=== PATIENT | female | born 1955 | race Caucasian/White ===

== ENCOUNTER 2020-06-19 08:35 | Outpatient (CLI) | payer MEDICARE, OTHER, SELFPAY ==
--- NOTE | 2020-06-24 12:21 | WPDHOLTEREM ---
Holter/Event Monitor Holter/Event Monitor Date of procedure: 06/19/20 Procedure Type: 24 hour holter monitor Indications: Tachycardia, Arrhythmia Conclusion: 1. 24 hour holter monitor on 06/19/20. 2. Predomiinant rhythm is sinus rhythm. HR range 59-136 bpm; average HR 85 bpm. 3. There are 9 premature supraventricular complexes. There is one atrial tachycardia at 133 bpm lasting 6 beats. 4. There are 78 premature ventricular complexes. No ventricular tachycardia. 5. No sinoatrial or atrioventricular blocks. No significant pauses greater than 2 seconds. 6. Patient reports symptoms of flutter which demonstrate sinus rhythm, HR range 84-86 bpm.
== END 2020-06-19 08:36 | disposition home or self-care (01) ==
LOC: ANHCARD 08:36
PROVIDERS: PCP Family Medicine; Visit Provider Family Medicine
DX: R00.0 Tachycardia, unspecified (principal)
CPT/HCPCS: 93225; 93226

== ENCOUNTER 2020-09-03 11:58 | Outpatient (CLI) | payer MEDICARE, OTHER, SELFPAY ==
--- NOTE | ~2020-09-03 | MM_ITS ---
EXAMINATION: MM screening marcio BI w lara HISTORY: Screening mammogram TECHNIQUE: Craniocaudal and mediolateral oblique 3-D tomosynthesis images were obtained and synthetic 2-D images were generated. CAD analysis was submitted and interpreted. COMPARISON: 09/12/2019, 08/29/2018, 08/23/2017 bilateral digital screening mammogram examinations BREAST PARENCHYMAL COMPOSITION: There are scattered areas of fibroglandular density. FINDINGS: Scattered benign calcifications are noted bilaterally. There is no evidence of suspicious m ass, calcification, or architectural distortion to suggest malignancy in either breast. There has bee n no suspicious interval change. IMPRESSION: 1. No mammographic evidence of malignancy. 2. Recommend routine screening mammography in one year. BI-RADS Category 2: Benign finding(s). Reviewed, dictated and finalized at location A.
== END 2020-09-03 11:59 | disposition home or self-care (01) ==
LOC: ANHIMG 12:01
PROVIDERS: PCP Family Medicine; Visit Provider Obstetrics & Gynecology
DX: Z12.31 Encounter for screening mammogram for malignant neoplasm of breast (principal)
CPT/HCPCS: 77063; 77067

== ENCOUNTER → 2021-06-18 10:53 | Outpatient (CLI) | payer MEDICARE, OTHER, SELFPAY ==
--- NOTE | ~2021-06-18 | XR_ITS ---
EXAMINATION: XR hand BI arthritis min 3V DATE: 06/18/2021 11:28 INDICATION: Bilateral hand pain. TECHNIQUE: 4 views of right hand and 4 views of left hand on 7 radiographs were obtained. COMPARISON: None. FINDINGS: RIGHT HAND: There is radial angulation of second distal phalanx with respect to the middle phalanx. N o fracture. There is severe osteoarthritis of triscaphe joint and mild osteoarthritis of first carpom etacarpal joint and most of the interphalangeal joints. There is severe osteoarthritis of second dist al interphalangeal joint and moderate osteoarthritis of third and fifth distal interphalangeal joints . LEFT HAND: There is radial subluxation and angulation of second distal phalanx with respect to the mi ddle phalanx. No fracture. There is moderate osteoarthritis of triscaphe joint and mild osteoarthriti s of first carpometacarpal joint and most of the interphalangeal joints. There is severe osteoarthrit is of second distal interphalangeal joint and moderate osteoarthritis of third and fifth distal inter phalangeal joints. IMPRESSION: 1. Polyarticular osteoarthritis. Reviewed, dictated and finalized at location A.
== END ==
PROVIDERS: PCP Family Medicine; Visit Provider Family Medicine
DX: S63.201A Unspecified subluxation of left index finger, initial encounter (principal); M19.042 Primary osteoarthritis, left hand; M19.041 Primary osteoarthritis, right hand; M18.0 Bilateral primary osteoarthritis of first carpometacarpal joints
CPT/HCPCS: 73130

== ENCOUNTER 2023-01-12 09:50 | Day surgery (SDC) | payer MEDICARE, SELFPAY ==
[2022-11-29 11:44] VITALS: BMI 32.8
[2023-01-03 12:41] VITALS: BMI 32.4
--- NOTE | 2023-01-11 15:09 | P.PNAN_ITS ---
Anes - Initial Pre Proc Eval Procedure: Operation Date: 01/12/23 12:00 Proposed Procedures p Colonoscopy - Jake Lake MD Date/Time: 01/11/23 15:09 Surgeon: Jake Lake MD Pre Op Diagnosis: History of Colon Polyps Patient Data Age: 67 Gender: F Height: 1.6 m Weight: 83 kg Allergies Allergy/AdvReac Type Severity Reaction Status Date / Time Penicillins Allergy Unknown Rash Verified 01/03/23 12:52 Home Medications Medication Instructions Recorded Confirmed Type raloxifene 60 mg tablet (Evista) 60 mg PO DAILY 10/30/19 01/03/23 History levothyroxine 112 mcg tablet 112 mcg PO DAILY #90 tabs 04/22/22 01/03/23 Rx (Synthroid) rosuvastatin 20 mg tablet (Crestor) 20 mg PO DAILY #90 tabs 07/21/22 01/03/23 Rx Patient hx anesthesia problems: none Family hx anesthesia problems: none Results Review: All pre-operative results and documents have been reviewed as part of the pre- operative evaluation. [facility] Past Medical History Medical History Anxiety Bilateral hand pain BMI 32.0-32.9,adult Hypothyroidism Mixed hyperlipidemia Need for vaccination Tachycardia Vitamin D deficiency, unspecified Family History Family History Mother Hypertension Family history of diabetes mellitus in first degree relative Family history of malignant neoplasm of thyroid Grandparent Cerebrovascular accident Other Diabetes mellitus Family history of coronary artery disease Family history of irritable bowel syndrome Social History Social History Smoking status: Never smoker Alcohol intake: current Alcohol use details: a few times per week Substance use: never Substance use type: does not use Living arrangements: with family Spiritual care concerns: No Anes - Eval Final PreProcedure Day of Procedure 01/11/23 15:09 Patient weight: obese Heart: regular rate and rhythm Lungs: clear to auscultation Airway: Mallampati scale class II Neurological: alert and oriented Last oral intake: >/= 8 hours ASA classification: II Emergent: no Anesthetic plan: proceed Anesthesia type and monitoring: general GIVS and standard monitoring Results Review: All pre-operative results and documents have been reviewed as part of the pre- operative evaluation. Informed Consent: The patient's anesthetic plan and its attendant risks and benefits were discussed with the patient/family/POA. Questions were solicited and answers provided to the satisfaction of the patient/family/POA.
--- NOTE | 2023-01-11 17:10 | PM.HPGS ---
History of Present Illness History of Present Illness Consent: Risks, benefits, and alternatives have been discussed and questions answered. Patient agrees to proceed with procedure. Chief complaint: History of Colon Polyps Narrative: Stephanie Segundo is a 67 year old female referred for colon cancer screening. Her last colonoscopy was 5 years ago. She has have a history of having polyps. Review of Systems Review of Systems: All systems reviewed & are unremarkable except as noted in HPI and below PMFSH Past Medical History Medical History Anxiety Bilateral hand pain BMI 32.0-32.9,adult Hypothyroidism Mixed hyperlipidemia Need for vaccination Tachycardia Vitamin D deficiency, unspecified Family History Family History Mother Hypertension Family history of diabetes mellitus in first degree relative Family history of malignant neoplasm of thyroid Grandparent Cerebrovascular accident Other Diabetes mellitus Family history of coronary artery disease Family history of irritable bowel syndrome Social History Social History Smoking status: Never smoker Alcohol intake: current Alcohol use details: a few times per week Substance use: never Substance use type: does not use Living arrangements: with family Spiritual care concerns: No Meds Home Medications and Allergies Home Medications Medication Instructions Recorded Confirmed Type raloxifene 60 mg tablet (Evista) 60 mg PO DAILY 10/30/19 01/03/23 History levothyroxine 112 mcg tablet 112 mcg PO DAILY #90 tabs 04/22/22 01/03/23 Rx (Synthroid) rosuvastatin 20 mg tablet (Crestor) 20 mg PO DAILY #90 tabs 07/21/22 01/03/23 Rx Allergies Allergy/AdvReac Type Severity Reaction Status Date / Time Penicillins Allergy Unknown Rash Verified 01/03/23 12:52 Exam Const: General: alert Orientation/consciousness: patient oriented x3 Resp: Auscultation: clear to auscultation bilaterally Cardio: Rhythm: regular rhythm GI: GI Palp: Yes Soft to palpation and No Tenderness to palpation present (GI) Neuro: General: patient oriented x3 Assessment and Plan Assessment and plan (1) Colon cancer screening: Code(s): Z12.11 - Encounter for screening for malignant neoplasm of colon Status: Acute Assessment and Plan: Colonoscopy with possible biopsy or polypectomy or cautery or injection of substances.
[2023-01-12 10:52] VITALS: BP 123/77; PULSE 89; RESP 16; TEMP 36.9; O2SAT 98; BMI 33.5
[2023-01-12] MEDS: LACTATED RINGERS 1,000 ML 150 ML IV CONT (11:02)
[2023-01-12 12:32] VITALS: BP 159/75; PULSE 72; RESP 14; O2SAT 94
[2023-01-12 12:42] VITALS: BP 131/70; PULSE 70; RESP 16; O2SAT 98
--- NOTE | 2023-01-12 12:50 | SUR.PHASEII ---
PT AWAKE AND ALERT. EATING AND DRINKING. DENIES PAIN.
[2023-01-12 12:52] VITALS: BP 128/83; PULSE 60; RESP 16; O2SAT 100
--- NOTE | 2023-01-12 14:31 | WPDANESPN ---
Anes - Prog Note Post-Op Date/Time: 01/12/23 14:31 Cardiovascular status: normal Respiratory status: normal Airway patency: baseline Mental status: baseline Post-Op hydration status: normal Vital Signs: Last Vital Signs Temp 36.9 C 01/12/23 10:52 Pulse 60 01/12/23 12:52 Resp 16 01/12/23 12:52 BP 128/83 01/12/23 12:52 Pulse Ox 100 01/12/23 12:52 O2 Del Method Room Air 01/12/23 12:52 Pain Score (VAS): 0 I/O: Intake & Output 01/11/23 01/12/23 01/12/23 23:59 07:59 15:59 Intake Total 1100 Balance 1100 Post-procedural complaints: none Patient Feedback: Patient satisfied with anesthetic care. Other Findings: Patient vital signs back to baseline. Patient denies nausea and vomiting. Patient's pain under control. Patient OK for discharge.
== END 2023-01-12 13:10 | disposition home or self-care (01) ==
PROVIDERS: PCP Family Medicine; Visit Provider Internal Medicine Gastroenterology
PROC: 0DJD8ZZ Inspection of Lower Intestinal Tract, Via Natural or Artificial Opening Endoscopic (ICD-10-PCS; CPT 45378; principal; 2023-01-12 12:00)
DX: Z12.11 Encounter for screening for malignant neoplasm of colon (principal)
CPT/HCPCS: 45378

== ENCOUNTER 2023-02-28 13:06 | Outpatient (CLI) | payer MEDICARE, SELFPAY ==
[2023-02-28 14:02] LABS: Basophils Absolute Auto 0.1 K/mm3 (0.0-0.1); Basophils Percent Auto 0.8 % (0.2-1.2); Eosinophils Absolute Auto 0.4 K/mm3 (0-0.3); Eosinophils Percent Auto 3.6 % (0-4.4); Hematocrit 43.5 % (37.0-47.0); Hemoglobin 14.1 g/dL (12.0-15.0); Immature Granulocyte Absolute 0.03 K/mm3 (0.00-0.031); Immature Granulocyte Percent A 0.3 % (0-0.5); Lymphocytes Percent Auto 32.8 % (18.3-44.2); Mean Corpuscular HGB Conc 32.4 g/dl (32-36); Mean Corpuscular Hemoglobin 31.4 pg (26-34); Mean Corpuscular Volume 96.9 fl (80-100); Mean Platelet Volume 10.4 fl (7.4-10.4); Monocytes Absolute Auto 0.9 K/mm3 (0.1-0.6); Monocytes Percent Auto 8.7 % (2.6-8.5); Neutrophils Absolute Auto 5.3 K/mm3 (1.3-6.7); Neutrophils Percent Auto 53.8 % (45.5-73.1); Platelet Count Result 336 k/mm3 (150-375); Red Blood Count 4.49 M/mm3 (4.2-5.4); Red Cell Distribution Width 13.2 % (11.5-14.5); White Blood Count 9.8 K/mm3 (4.5-10.0)
[2023-02-28 15:01] LABS: Erythrocyte Sedimentation Rate 15 mm/hr (0-20)
[2023-02-28 15:03] LABS: Alanine Aminotransferase 30 U/L (6-35); Albumin Level 4.5 g/dL (3.5-5.1); Alkaline Phosphatase 81 U/L (38-126); Anion Gap 10 mmol/L (8-16); Aspartate Amino Transferase 29 U/L (14-36); Bilirubin,Total 1.4 mg/dL (0.2-1.3); Blood Urea Nitrogen 14 mg/dL (7-17); CRP < 0.5 mg/dL (<1.0); Calcium 9.1 mg/dL (8.4-10.2); Carbon Dioxide 27 mmol/L (22-30); Chloride 106 mmol/L (98-107); Estimated Glomerular Filt Rate > 60; Glucose 109 mg/dL (65-110); Potassium 4.1 mmol/L (3.4-5.0); Sodium 143 mmol/L (137-145)
[2023-03-03 14:55] LABS: BCR/abl Prior Result Not Given
[2023-03-03 15:42] LABS: BCR/abl P190 Not Detected; BCR/abl P210 Not Detected
[2023-03-03 15:43] LABS: BCR/abl P190 Chg YES; BCR/abl P210 Chg YES
== END 2023-02-28 13:07 | disposition home or self-care (01) ==
PROVIDERS: PCP Family Medicine; Visit Provider Internal Medicine Hematology & Oncology
DX: D72.829 Elevated white blood cell count, unspecified (principal)
CPT/HCPCS: 36415; 80053; 81206; 81207; 85025; 85652; 86140

== ENCOUNTER 2023-09-15 08:53 | Outpatient (CLI) | payer MEDICARE, SELFPAY ==
[2023-09-15 09:07] LABS: Basophils Absolute Auto 0.1 K/mm3 (0.0-0.1); Basophils Percent Auto 0.6 % (0.2-1.2); Eosinophils Absolute Auto 0.4 K/mm3 (0-0.3); Eosinophils Percent Auto 2.5 % (0-4.4); Hematocrit 43.8 % (37.0-47.0); Hemoglobin 14.5 g/dL (12.0-15.0); Immature Granulocyte Absolute 0.06 K/mm3 (0.00-0.031); Immature Granulocyte Percent A 0.4 % (0-0.5); Lymphocytes Absolute Auto 3.04 K/mm3 (0.9-3.2); Lymphocytes Percent Auto 21.1 % (18.3-44.2); Mean Corpuscular HGB Conc 33.1 g/dl (32-36); Mean Corpuscular Hemoglobin 31.8 pg (26-34); Mean Corpuscular Volume 96.1 fl (80-100); Mean Platelet Volume 10.2 fl (7.4-10.4); Monocytes Absolute Auto 1.1 K/mm3 (0.1-0.6); Monocytes Percent Auto 7.9 % (2.6-8.5); Neutrophils Absolute Auto 9.7 K/mm3 (1.3-6.7); Neutrophils Percent Auto 67.5 % (45.5-73.1); Platelet Count Result 342 k/mm3 (150-375); Red Blood Count 4.56 M/mm3 (4.2-5.4); Red Cell Distribution Width 13.1 % (11.5-14.5); White Blood Count 14.4 K/mm3 (4.5-10.0)
== END 2023-09-15 08:54 | disposition home or self-care (01) ==
PROVIDERS: PCP Family Medicine; Visit Provider Internal Medicine Hematology & Oncology
DX: D72.829 Elevated white blood cell count, unspecified (principal)
CPT/HCPCS: 36415; 85025; 88184

== ENCOUNTER 2023-09-19 10:14 | Outpatient (CLI) | payer MEDICARE, SELFPAY ==
[2023-09-19 10:33] LABS: Basophils Absolute Auto 0.1 K/mm3 (0.0-0.1); Basophils Percent Auto 0.5 % (0.2-1.2); Eosinophils Absolute Auto 0.3 K/mm3 (0-0.3); Eosinophils Percent Auto 2.3 % (0-4.4); Hematocrit 43.4 % (37.0-47.0); Immature Granulocyte Absolute 0.06 K/mm3 (0.00-0.031); Immature Granulocyte Percent A 0.4 % (0-0.5); Lymphocytes Absolute Auto 2.94 K/mm3 (0.9-3.2); Mean Corpuscular HGB Conc 32.3 g/dl (32-36); Mean Corpuscular Hemoglobin 31.5 pg (26-34); Mean Corpuscular Volume 97.5 fl (80-100); Mean Platelet Volume 10.1 fl (7.4-10.4); Monocytes Percent Auto 7.4 % (2.6-8.5); Neutrophils Percent Auto 67.4 % (45.5-73.1); Platelet Count Result 334 k/mm3 (150-375); Red Blood Count 4.45 M/mm3 (4.2-5.4); Red Cell Distribution Width 13.2 % (11.5-14.5); White Blood Count 13.3 K/mm3 (4.5-10.0)
== END 2023-09-19 10:15 | disposition home or self-care (01) ==
PROVIDERS: PCP Family Medicine; Visit Provider Internal Medicine Hematology & Oncology
DX: D72.829 Elevated white blood cell count, unspecified (principal)
CPT/HCPCS: 36415; 85025

== ENCOUNTER 2024-04-03 10:27 | Outpatient (CLI) | payer MEDICARE, SELFPAY ==
[2024-04-03 10:43] LABS: Basophils Absolute Auto 0.1 K/mm3 (0.0-0.1); Basophils Percent Auto 0.8 % (0.2-1.2); Eosinophils Absolute Auto 0.3 K/mm3 (0-0.3); Eosinophils Percent Auto 2.9 % (0-4.4); Hematocrit 44.1 % (37.0-47.0); Hemoglobin 14.2 g/dL (12.0-15.0); Immature Granulocyte Absolute 0.05 K/mm3 (0.00-0.031); Immature Granulocyte Percent A 0.5 % (0-0.5); Lymphocytes Absolute Auto 2.95 K/mm3 (0.9-3.2); Lymphocytes Percent Auto 28.1 % (18.3-44.2); Mean Corpuscular HGB Conc 32.2 g/dl (32-36); Mean Corpuscular Hemoglobin 31.8 pg (26-34); Mean Corpuscular Volume 98.9 fl (80-100); Mean Platelet Volume 10.3 fl (7.4-10.4); Monocytes Absolute Auto 0.8 K/mm3 (0.1-0.6); Monocytes Percent Auto 7.8 % (2.6-8.5); Neutrophils Absolute Auto 6.3 K/mm3 (1.3-6.7); Neutrophils Percent Auto 59.9 % (45.5-73.1); Platelet Count Result 329 k/mm3 (150-375); Red Blood Count 4.46 M/mm3 (4.2-5.4); Red Cell Distribution Width 13.2 % (11.5-14.5); White Blood Count 10.5 K/mm3 (4.5-10.0)
[2024-04-03 11:46] LABS: Anion Gap 9 mmol/L (4-12); Blood Urea Nitrogen 15 mg/dL (7-17); Calcium 8.9 mg/dL (8.4-10.2); Carbon Dioxide 24 mmol/L (22-30); Chloride 108 mmol/L (98-107); Estimated Glomerular Filt Rate > 60; Glucose 101 mg/dL (65-110); Sodium 141 mmol/L (137-145)
== END 2024-04-03 10:28 | disposition home or self-care (01) ==
LOC: ANHLAB 10:29
PROVIDERS: PCP Family Medicine; Visit Provider Internal Medicine Hematology & Oncology
DX: D72.829 Elevated white blood cell count, unspecified (principal)
CPT/HCPCS: 36415; 80048; 85025

== ENCOUNTER 2025-04-24 10:20 | Outpatient (CLI) | payer MEDICARE, SELFPAY ==
--- NOTE | ~2025-04-24 | MM_ITS ---
EXAMINATION: MM screening marcio BI w lara HISTORY: Screening TECHNIQUE: Craniocaudal and mediolateral oblique 3-D tomosynthesis images were obtained and synthetic 2-D images were generated. CAD analysis was submitted and interpreted. COMPARISON: Comparison to multiple prior studies sequentially, with oldest reviewed study dated 08/03. BREAST PARENCHYMAL COMPOSITION: Not dense: There are scattered areas of fibroglandular density. FINDINGS: There is no evidence of suspicious mass, calcification, or architectural distortion to sugg est malignancy in either breast. There has been no suspicious interval change. IMPRESSION: 1. No mammographic evidence of malignancy. 2. Recommend routine screening mammography in one year. BI-RADS Category 1: Negative Reviewed, dictated and finalized at location B.
--- OUTSIDE RECORDS SUMMARY | 2025-04-24 11:58 | XMS_ITS | Encounter Summary ---
Author Organization [facility] cicayda Address [address] [place] [address] Care Team Providers Care Floor Steward/Stewardess Name Role Phone Arvind Holden MD Primary Care Provider [phone] Encounter Details Date Type Department Care Team (Late st Contact Info) Description 10/04/2023 Telephone [facility] Oncology and Hematology - [place] [address] [place] [address] Domenico Rodriguez MD [address] [place] [address] Social History Tobacco Use Types Packs/Day Years Used Date Smoking Tobacco: Former Cigarettes Smokeless Tobacco: Never Alcohol Use Standard Drinks/Week Comments Yes 1 (1 standard drink = 0.6 oz pur e alcohol) Comments Unknown Sex and Gender Information Value Date Recorded Sex Assigned at Not on file Legal Sex Female 8:14 AM CDT Gender Identity Not on file Sexual Orientation Not on file documented as of this encounter Plan of Treatment Not on file documented as of this encounter Visit Diagnoses Not on filedocumented in this encounter Care Teams Floor Steward/Stewardess Relationship Specialty Start Date End Date Arvind Holden MD [address] [place] [address] PCP - General Family Practice 02/08/23 documented as of this encounter
--- OUTSIDE RECORDS SUMMARY | 2025-04-24 11:58 | XMS_ITS | Clinical Summary ---
Author Organization [facility] Address [address] [address] Care Team Providers Care Commercial Fisher Name Role Phone Arvind Holden MD Primary Care Provider [phone] Allergies Active Allergy Reactions Criticality Noted Date Comments Penicillins Swelling Low 02/22/2023 Medications levothyroxine 112 mcg tablet Take 112 mcg by mouth daily in the morning. Active rosuvastatin (CRESTOR) 20 mg tablet Take 20 mg by mouth daily. Active raloxifene (EVISTA) 60 mg tablet Take 60 mg by mouth daily. Active escitalopram oxalate (LEXAPRO) 10 mg tablet Take 10 mg by mouth daily. 07/27/2023 Active Active Problems No known active problems Encounters Date Type Department Care Team Description 04/04/2025 External Device Data [facility] ABSTRACTION Provider, Abstract 04/03/2025 External Device Data [facility]STRACTION Provider, Abstract 04/02/2025 External Device Data [facility]STRACTION Provider, Abstract 01/30/2025 External Device Data [facility] ABSTRACTION Provider, Abstract from Last 3 Months Family History Medical History Relation Name Comments Heart Disease Brother No Known Problems Daughter No Known Problems Father Diabetes Mother Heart Disease Mother No Known Problems Son Relation Name Status Comments Brother Alive Daughter Alive Father Mother Sister Son Alive Social History Tobacco Use Types Packs/Day Years Used Date Smoking Tobacco: Former Cigarettes 0.3 2 1 - 1991 Smokeless Tobacco: Never Tobacco Cessation:Counseling Given: Not Answered Alcohol Use Standard Drinks/Week Comments Yes 1 (1 standard drink = 0.6 oz pur e alcohol) Comments Unknown Sex and Gender Information Value Date Recorded Sex Assigned at Not on file Legal Sex Female 8:14 AM CDT Gender Identity Not on file Sexual Orientation Not on file Last Filed Vital Signs Vital Sign Reading Time Taken Comments Blood Pressure 127/81 04/04/2024 10:46 AM CDT Pulse 71 04/04/2024 10:46 AM CDT Temperature 35.8 C (96.4 F) 04/04/2024 10:46 AM CDT Respiratory Rate 14 04/04/2024 10:46 AM CDT Oxygen Saturation 96% 04/04/2024 10:46 AM CDT Inhaled Oxygen Concentration - - Weight 89 kg (196 lb 3.2 oz) 04/04/2024 10:46 AM CDT Height 160 cm (5' 3) 02/22/2023 10:19 AM CDT Body Mass Index 34.76 02/22/2023 10:19 AM CDT Plan of Treatment Health Maintenance Due Date Last Done Comments DTAP/TDAP/TD VACCINES (1 - Tdap) 1973 BREAST CANCER SCREENING 1994 COLORECTAL SCREENING 1999 Colorectal Cancer Screening 1999 FIT-DNA Q 3 years 1999 FIT/FOBT Q 1 year 1999 Flex Sig/CT Colonography Q 5 years 1999 PNEUMOCOCCAL VACCINE 50+ YEA RS (1 of 1 - PCV) 2004 ZOSTER VACCINE (1 of 2) 2004 OSTEOPOROSIS SCREENING 2019 INFLUENZA VACCINE (#1) 2024 08/28/2018, 2016 RSV VACCINE (60+ or ) (1 - 1-dose 75+ series) 2029 [facility] [id number] Care Teams Commercial Fisher Relationship Specialty Start Date End Date Arvind Holden MD [address] [place] [address] PCP - General Family Practice 02/08/23
--- OUTSIDE RECORDS SUMMARY | 2025-04-24 11:58 | XMS_ITS | Clinical Summary ---
Author Organization [facility] [address] Address [address] [place] [address] Care Team Providers Care Firmware Software Verification Engineer Name Role Phone Arvind Holden MD Primary Care Provider [phone] Allergies Active Allergy Reactions Criticality Noted Date Comments Penicillins Swelling Medium 01/03/2018 Medications rosuvastatin (CRESTOR) 20 mg tablet Take 1 tablet (20 mg total) by mouth daily Active raloxifene (EVISTA) 60 mg tablet Take 1 tablet (60 mg total) by mouth daily Active ascorbic acid (VITAMIN C) 1,000 mg tablet Take 1 tablet (1,000 mg total) by mouth daily Active cholecalciferol (VITAMIN D-3) 5,000 unit capsule Take 1 capsule (5,000 Units total) by mouth daily Active cetirizine (ZyrTEC) 10 mg tablet Take 1 tablet (10 mg total) by mouth daily Active levothyroxine (SYNTHROID) 112 mcg tablet Take 1 tablet (112 mcg total) by mouth traffic operations manager before breakfast Active multivitamin capsule Take 1 capsule by mouth daily Active calcium carbonate-vitam in D3 (CALTRATE 600 + D) 1500 mg (600 mg elemental) -400 units per tablet Take 1 tablet by mouth daily Active acidophilus-pec tin, citrus 100 million cell-10 mg capsule Take by mouth daily Active escitalopram (LEXAPRO) 10 mg tablet Take 1 tablet (10 mg total) by mouth daily Active Active Problems Problem Noted Date Diagnosed Date Nonrheumatic mitral valve regurgitation 10/26/20 21 Nonrheumatic aortic valve insufficiency 10/26/20 21 Mixed hyperlipidemia 08/11/2020 Palpitations 08/11/2020 Other specified hypothyroidism 08/11/2020 Surgical History Surgery Date Site/Laterality Comments DILATION AND CURETTAGE OF UTERUS ENDOMETRIAL ABLATION 11/14/1994 - 11/13/1995 Medical History Medical History Date Comments Anxiety Thyroid disease Hyperlipidemia UTI (urinary tract infection) Family History Medical History Relation Name Comments COPD Father ANA Isabel Heart attack Father ANA Isabel Diabetes Mother Celina Isabel Hypertension Mother Celina Isabel Relation Name Status Comments Father ANA Isabel (Age 73) Mother Celina Isabel (Age 90) Social History Tobacco Use Types Packs/Day Years Used Date Smoking Tobacco: Former Cigarettes Q uit: 1994 Smokeless Tobacco: Never Tobacco Cessation:Counseling Given: Not Answered Alcohol Use Standard Drinks/Week Comments Yes 0 (1 standard drink = 0.6 oz pur e alcohol) occasional Comments Unknown Sex and Gender Information Value Date Recorded Sex Assigned at Not on file Legal Sex Female 3:13 AM PORTER MARINA Gender Identity Female 11/02/2020 7:32 PM PORTER MARINA Sexual Orientation Straight 11/02/2020 7: 32 PM PORTER MARINA Obstetrics History Last Filed Vital Signs Vital Sign Reading Time Taken Comments Blood Pressure 118/66 12/20/2024 11:24 AM PORTER MARINA Pulse 80 12/20/2024 11:24 AM PORTER MARINA Temperature 36.4 C (97.5 F) 08/11/2020 10:14 AM CDT Respiratory Rate - - Oxygen Saturation 98% 12/20/2024 11:24 AM PORTER MARINA Inhaled Oxygen Concentration - - Weight 88.9 kg (196 lb) 12/20/2024 11:24 AM PORTER MARINA Height 162.6 cm (5' 4) 12/20/2024 11:24 AM PORTER MARINA Body Mass Index 33.64 12/20/2024 11:24 AM PORTER MARINA Plan of Treatment Health Maintenance Due Date Last Done Comments Breast Cancer Screening-Mammogram 1954 Colon Cancer Screening-Colonoscopy 1954 Depression Screening 1954 Fall Risk Assessment 1954 Hepatitis C Screening 1954 Osteoporosis Screening-Bone Density Scan 1954 DTaP/Tdap/Td Vaccine (1 - Tdap) 1965 Hepatitis B Screening 1972 Pneumococcal vaccine 65+ (1 of 1 - PCV) 2004 Zoster Vaccine (1 of 2) 2004 Well Visit 65+ 2019 Influenza Vaccine (Season Ended) 2025 09/19/2019, 08/28/2018, 09/28/2017, Additional history exists Insurance [facility] MEDICARE [facility] Address: [address] [address] [facility] MEDICARE [facility] Address: [place] [id number] Care Teams Firmware Software Verification Engineer Relationship Specialty Start Date End Date Arvind Holden MD PCP - General Family Medicine 06/27/20
--- OUTSIDE RECORDS SUMMARY | 2025-04-24 11:58 | XMS_ITS | Referral Summary ---
Author Organization [facility] [address] Address [address] [place] [address] Care Team Providers Care Intake Clerk Name Role Phone Arvind Holden MD Primary Care Provider [phone] Allergies Active Allergy Reactions Criticality Noted Date [...] 1 tablet (112 mcg total) by mouth metal fabricator apprentice before breakfast Active multivitamin capsule Take 1 [...] 08/11/2020 Palpitations 08/11/2020 Other specified hypothyroidism 08/11/2020 Social History Tobacco Use Types Packs/Day Years Used Date Smoking Tobacco: Former Cigarettes Q uit: 1994 Smokeless Tobacco: Never Tobacco Cessation:Counseling Given: Not Answered Alcohol Use Standard Drinks/Week Comments Yes 0 (1 standard drink = 0.6 oz pur e alcohol) occasional Comments Unknown Sex and Gender Information Value Date Recorded Sex Assigned at Not on file Legal Sex Female 3:13 AM ATTIC BLOWER Gender Identity Female 11/02/2020 7:32 PM ATTIC BLOWER Sexual Orientation Straight 11/02/2020 7: 32 PM ATTIC BLOWER Last Filed Vital Signs Vital Sign Reading Time Taken Comments Blood Pressure 118/66 12/20/2024 11:24 AM ATTIC BLOWER Pulse 80 12/20/2024 11:24 AM ATTIC BLOWER Temperature 36.4 C (97.5 F) 08/11/2020 10:14 AM CDT Respiratory Rate - - Oxygen Saturation 98% 12/20/2024 11:24 AM ATTIC BLOWER Inhaled Oxygen Concentration - - Weight 88.9 kg (196 lb) 12/20/2024 11:24 AM ATTIC BLOWER Height 162.6 cm (5' 4) 12/20/2024 11:24 AM ATTIC BLOWER Body Mass Index 33.64 12/20/2024 11:24 AM ATTIC BLOWER Plan of Treatment Not on file Insurance [facility] MEDICARE ADVANTAGE [facility] MEDICARE ADVANTAGE Care Teams Intake Clerk Relationship Specialty Start Date End Date Arvind Holden MD PCP - General Family Medicine 06/27/20
== END 2025-04-24 10:21 | disposition home or self-care (01) ==
LOC: CHSIMG 10:22
PROVIDERS: PCP Family Medicine; Visit Provider Obstetrics & Gynecology
DX: Z12.31 Encounter for screening mammogram for malignant neoplasm of breast (principal)
CPT/HCPCS: 77063; 77067